=== PATIENT | female | born 2000 | race Caucasian/White ===

== ENCOUNTER 2019-03-17 15:39 | Emergency (ER) | payer MEDICAID ==
[~2019-03-17] VITALS: Ht 160 cm; Wt 52.2 kg
[2019-03-17 16:31] LABS: ABSOLUTE MONOCYTES 0.4 thou/uL (0.0-1.2); ABSOLUTE NEUTROPHILS 6.8 thou/uL (1.6-8.1); BASOPHILS 0.5 %; EOSINOPHILS 0.2 %; HEMATOCRIT 38.2 % (37.0-47.0); HEMOGLOBIN 13.3 gm/dL (12.0-15.0); LYMPHOCYTES 21.7 %; MCH 29.2 pg (26.0-34.0); MCHC 34.7 g/dL (28.0-37.0); MCV 84.1 fL (80.0-100.0); MONOCYTES 4.6 %; MPV 9.4 fl. (7.2-11.1); NUCLEATED RBCS 0 /100WBC; PLATELET COUNT* 281 thou/uL (150-400); RBC 4.54 mil/uL (4.20-5.00); RDW-CV 13.1 % (10.5-14.5); WBC 9.4 thou/uL (4.0-11.0)
[2019-03-17 16:32] LABS: URINE BILIRUBIN NEGATIVE (Negative); URINE BLOOD NEGATIVE (Negative); URINE CLARITY CLEAR; URINE COLOR YELLOW; URINE GLUCOSE-RANDOM NEGATIVE (Negative); URINE LEUKOCYTES-REFLEX NEGATIVE (Negative); URINE NITRITE-REFLEX NEGATIVE (Negative); URINE PROTEIN 1+ (Negative); URINE SPECIFIC GRAVITY 1.025 (1.005-1.030); URINE UROBILINOGEN 0.2 E.U./dl (0.2-1.0)
[2019-03-17 16:34] LABS: URINE KETONES 3+ (Negative)
[2019-03-17 16:36] LABS: ACETEST (KETONE CONFIRMATORY) Large (Negative)
[2019-03-17 16:43] LABS: CALCIUM 10.2 mg/dL (8.5-10.1); CREATININE 0.6 mg/dL (0.6-1.3)
[2019-03-17 16:48] LABS: ALBUMIN 3.9 g/dL (3.4-5.0); TOTAL BILIRUBIN 0.6 mg/dL (<0.1-1.0)
[2019-03-17] MEDS ORDERED: ZOFRAN ODT4 MG PO (17:26)
[2019-03-17 17:39] VITALS: BP 94/44
== END 2019-03-17 17:39 | disposition home or self-care (01) ==
LOC: M.ERS 15:39
PROVIDERS: Nurse Practitioner Family
DX: O21.0 Mild hyperemesis gravidarum (principal); Z3A.01 Less than 8 weeks gestation of pregnancy

== ENCOUNTER 2019-04-21 17:16 | Emergency (ER) | payer OTHER, MEDICAID ==
[~2019-04-21] VITALS: Ht 152.4 cm; Wt 44.5 kg
[~2019-04-21 17:16] MED LIST: ZOFRAN ODT4 MG PO
[2019-04-21] MEDS ORDERED: PRENATAL PO (17:33)
[2019-04-21] MEDS ORDERED: ZOFRAN ODT4 MG PO (17:33)
[2019-04-21 17:49] LABS: ABSOLUTE MONOCYTES 0.8 thou/uL (0.0-1.2); ABSOLUTE NEUTROPHILS 9.9 thou/uL (1.6-8.1); BASOPHILS 0.1 %; EOSINOPHILS 0.2 %; HEMATOCRIT 35.2 % (37.0-47.0); HEMOGLOBIN 12.2 gm/dL (12.0-15.0); LYMPHOCYTES 15.9 %; MCH 28.9 pg (26.0-34.0); MCHC 34.5 g/dL (28.0-37.0); MCV 83.6 fL (80.0-100.0); MONOCYTES 5.9 %; MPV 8.6 fl. (7.2-11.1); NUCLEATED RBCS 0 /100WBC; PLATELET COUNT* 253 thou/uL (150-400); POLYS 77.9 %; RBC 4.21 mil/uL (4.20-5.00); WBC 12.7 thou/uL (4.0-11.0)
[2019-04-21 17:56] LABS: CALCIUM 9.8 mg/dL (8.5-10.1); CREATININE 0.6 mg/dL (0.6-1.3)
[2019-04-21 17:57] LABS: POTASSIUM 2.9 mmol/L (3.5-5.1)
[2019-04-21 18:01] LABS: ALBUMIN 3.4 g/dL (3.4-5.0); TOTAL BILIRUBIN 0.9 mg/dL (<0.1-1.0); TOTAL PROTEIN 7.1 g/dL (6.4-8.2)
[2019-04-21 18:11] LABS: URINE BLOOD NEGATIVE (Negative); URINE CLARITY CLEAR; URINE COLOR YELLOW; URINE GLUCOSE-RANDOM NEGATIVE (Negative); URINE LEUKOCYTES-REFLEX NEGATIVE (Negative); URINE NITRITE-REFLEX NEGATIVE (Negative); URINE PROTEIN 2+ (Negative); URINE SPECIFIC GRAVITY >= 1.030 (1.005-1.030)
[2019-04-21 18:14] LABS: ICTOTEST (BILI CONFIRMATORY) Negative (Negative); URINE BILIRUBIN 1+ (Negative); URINE KETONES 3+ (Negative)
[2019-04-21 18:20] LABS: MUCUS >6 Heavy strn/LPF (None Seen); SQUAMOUS >10 Many /LPF (0-3)
[2019-04-21 18:22] LABS: BACTERIA-REFLEX 1-9 Few /HPF (None Seen); CASTS None Seen /LPF (None Seen); CRYSTALS None Seen /LPF (None Seen); URINE RBC None Seen /HPF (0-2); URINE WBC-REFLEX 0-5 Rare /HPF (0-5)
[2019-04-21] MEDS ORDERED: REGLAN 10 MG TA10 MG PO (20:18)
[2019-04-21] MEDS ORDERED: POTASSIUM20 PO (20:18)
[2019-04-21 20:35] VITALS: BP 131/81
--- NOTE | 2019-04-24 14:29 | EKG ---
[place] [address] ELECTROCARDIOGRAM REPORT Name: HOLLEY MIRELES Room: [facility]#: [id number] Admission: 04/21/19 Attend Phys: Discharge: 04/21/19 Date of : 89 Report #: [id number] THIS REPORT FOR: //name// [facility] ED Test Date: 2019-04-21 Test Time: 18:35:27 Pat Name: HOLLEY MIRELES Department: Room: Gender: F Director Regulatory Agency: [place] : 2000 Requested By: Deyanira Guajardo Order Number: [id number] MD: Luis Daniel Nichols Measurements Intervals [place] Rate: 79 P: 49 SC: 119 QRS: 53 QRSD: 105 T: -1 QT: 380 QTc: 436 Interpretive Statements Sinus rhythm Borderline short SC interval RSR' in V1 or V2, probably normal variant Abnormal T, consider ischemia, anterior leads No previous ECG available for comparison Electronically Signed On 04-24-2019 14:29:01 CDT by Luis Daniel Nichols [email or web address] <ELECTRONICALLY SIGNED> By: Luis Daniel Nichols MD, [facility] 04/24/19 1429 1835 1835 Luis Daniel Nichols MD, [facility] /EPI
== END 2019-04-21 20:35 | disposition home or self-care (01) ==
LOC: M.ERS 17:16
PROVIDERS: Physician Assistant
DX: O99.281 Endocrine, nutritional and metabolic diseases complicating pregnancy, first trimester (principal); E86.0 Dehydration; E87.6 Hypokalemia; K80.50 Calculus of bile duct without cholangitis or cholecystitis without obstruction; K83.9 Disease of biliary tract, unspecified; Z3A.11 11 weeks gestation of pregnancy

== ENCOUNTER 2021-05-02 08:39 | Emergency (ER) | payer OTHER, MEDICAID ==
[~2021-05-02] VITALS: Ht 154.9 cm; Wt 47.6 kg
[~2021-05-02 08:39] MED LIST changes: +POTASSIUM20 PO; +PRENATAL PO; +REGLAN 10 MG TA10 MG PO
[2021-05-02 09:38] LABS: URINE BLOOD TRACE (Negative); URINE CLARITY CLEAR; URINE COLOR YELLOW; URINE GLUCOSE-RANDOM NEGATIVE (Negative); URINE KETONES 2+ (Negative); URINE LEUKOCYTES-REFLEX NEGATIVE (Negative); URINE NITRITE-REFLEX NEGATIVE (Negative); URINE PROTEIN 1+ (Negative); URINE SPECIFIC GRAVITY >= 1.030 (1.005-1.030); URINE UROBILINOGEN 0.2 E.U./dl (0.2-1.0)
[2021-05-02 09:41] LABS: ICTOTEST (BILI CONFIRMATORY) Negative (Negative); URINE BILIRUBIN 1+ (Negative)
[2021-05-02 09:48] LABS: CASTS None Seen /LPF (None Seen); CRYSTALS None Seen /LPF (None Seen); SQUAMOUS 0-3 Few /LPF (0-3); URINE RBC 0-2 Rare /HPF (0-2); URINE WBC-REFLEX 6-15 Few /HPF (0-5)
[2021-05-02] MEDS ORDERED: DICLEGIS DR 101 EACH PO (11:38)
[2021-05-02 11:53] VITALS: BP 106/49
== END 2021-05-02 11:54 | disposition home or self-care (01) ==
LOC: M.ERS 08:39
PROVIDERS: Emergency Medicine Emergency Medical Services
DX: O21.8 Other vomiting complicating pregnancy (principal); Z3A.01 Less than 8 weeks gestation of pregnancy; Z79.899 Other long term (current) drug therapy

== ENCOUNTER 2021-05-23 15:43 | Emergency (ER) | payer OTHER, MEDICAID ==
[~2021-05-23] VITALS: Ht 152.4 cm; Wt 46.7 kg
[~2021-05-23 15:43] MED LIST changes: +DICLEGIS DR 101 EACH PO
[2021-05-23] MEDS ORDERED: IRON (16:10)
[2021-05-23 18:11] LABS: ABSOLUTE LYMPHOCYTES 1.7 thou/uL (0.8-5.3); ABSOLUTE MONOCYTES 0.4 thou/uL (0.0-1.2); ABSOLUTE NEUTROPHILS 6.8 thou/uL (1.6-8.1); BASOPHILS 0.3 %; EOSINOPHILS 0.2 %; HEMATOCRIT 36.5 % (37.0-47.0); HEMOGLOBIN 12.8 gm/dL (12.0-15.0); LYMPHOCYTES 19.4 %; MCH 29.5 pg (26.0-34.0); MCHC 35.1 g/dL (28.0-37.0); MCV 83.9 fL (80.0-100.0); MONOCYTES 4.7 %; MPV 8.8 fl. (7.2-11.1); NUCLEATED RBCS 0 /100WBC; PLATELET COUNT* 287 thou/uL (150-400); POLYS 75.4 %; RBC 4.35 mil/uL (4.20-5.00); RDW-CV 13.5 % (10.5-14.5)
[2021-05-23 18:17] LABS: CALCIUM 9.7 mg/dL (8.5-10.1); CREATININE 0.6 mg/dL (0.6-1.3); POTASSIUM 3.5 mmol/L (3.5-5.1)
[2021-05-23 18:22] LABS: ALBUMIN 3.4 g/dL (3.4-5.0); TOTAL BILIRUBIN 0.5 mg/dL (<0.1-1.0); TOTAL PROTEIN 7.3 g/dL (6.4-8.2)
[2021-05-23 20:20] VITALS: BP 105/63
== END 2021-05-23 20:22 | disposition home or self-care (01) ==
LOC: M.ERS 15:43
PROVIDERS: Emergency Medicine Emergency Medical Services
DX: O21.8 Other vomiting complicating pregnancy (principal); Z88.1 Allergy status to other antibiotic agents; Z3A.11 11 weeks gestation of pregnancy

== ENCOUNTER 2021-06-03 10:06 | Emergency (ER) | payer OTHER, MEDICAID ==
[~2021-06-03] VITALS: Ht 152.4 cm; Wt 46.7 kg
[~2021-06-03 10:06] MED LIST changes: +IRON
[2021-06-03 10:45] LABS: URINE BLOOD NEGATIVE (Negative); URINE CLARITY CLEAR; URINE COLOR YELLOW; URINE GLUCOSE-RANDOM NEGATIVE (Negative); URINE LEUKOCYTES-REFLEX TRACE (Negative); URINE NITRITE-REFLEX NEGATIVE (Negative); URINE PROTEIN 1+ (Negative); URINE SPECIFIC GRAVITY 1.025 (1.005-1.030)
[2021-06-03 10:46] LABS: ABSOLUTE LYMPHOCYTES 1.9 thou/uL (0.8-5.3); ABSOLUTE MONOCYTES 0.4 thou/uL (0.0-1.2); BASOPHILS 0.5 %; EOSINOPHILS 0.3 %; HEMATOCRIT 36.4 % (37.0-47.0); HEMOGLOBIN 12.7 gm/dL (12.0-15.0); LYMPHOCYTES 20.5 %; MCH 29.5 pg (26.0-34.0); MCHC 34.9 g/dL (28.0-37.0); MCV 84.7 fL (80.0-100.0); MONOCYTES 4.4 %; NUCLEATED RBCS 0 /100WBC; PLATELET COUNT* 239 thou/uL (150-400); POLYS 74.3 %; RDW-CV 13.5 % (10.5-14.5); WBC 9.4 thou/uL (4.0-11.0)
[2021-06-03 10:49] LABS: ICTOTEST (BILI CONFIRMATORY) Negative (Negative); URINE BILIRUBIN 1+ (Negative); URINE KETONES 3+ (Negative)
[2021-06-03 10:56] LABS: SQUAMOUS >10 Many /LPF (0-3)
[2021-06-03 10:57] LABS: CASTS None Seen /LPF (None Seen); CRYSTALS None Seen /LPF (None Seen); MUCUS >6 Heavy strn/LPF (None Seen); URINE WBC-REFLEX 6-15 Few /HPF (0-5)
[2021-06-03 10:58] LABS: CALCIUM 9.7 mg/dL (8.5-10.1); CREATININE 0.7 mg/dL (0.6-1.3); POTASSIUM 3.7 mmol/L (3.5-5.1)
[2021-06-03 11:03] LABS: ALBUMIN 3.5 g/dL (3.4-5.0); TOTAL BILIRUBIN 0.6 mg/dL (<0.1-1.0); TOTAL PROTEIN 7.5 g/dL (6.4-8.2)
[2021-06-03] MEDS ORDERED: REGLAN 10 MG TA10 MG PO (12:47)
[2021-06-03 13:02] VITALS: BP 101/64
== END 2021-06-03 13:03 | disposition home or self-care (01) ==
LOC: M.ERS 10:06
PROVIDERS: Nurse Practitioner Family
DX: O21.0 Mild hyperemesis gravidarum (principal); Z3A.13 13 weeks gestation of pregnancy; Z88.1 Allergy status to other antibiotic agents